=== PATIENT | male | born 1970 | race Caucasian/White ===

== ENCOUNTER 2019-07-16 06:23 | Emergency (ER) | payer OTHER ==
[~2019-07-16] VITALS: Ht 182.9 cm; Wt 110.1 kg
--- NOTE | 2019-07-16 06:58 | NUR ---
Note rashaun in EDM - 07/16/19 at 0813 by AVTAR RECEIVED REPORT FROM VANITA. PT SITTING UP ON Outline App AWAKE & CALM, RESPONDS APPROP TO STAFF, NAD- ABLE TO CONVERSE W/O DISTRESS, COMFORT MEASURES PROVIDED, CALL LIGHT WITHIN REACH.
--- NOTE | 2019-07-16 06:58 | NUR ---
RECEIVED REPORT FROM VANITA. PT SITTING UP ON GURNEY AWAKE & CALM, RESPONDS APPROP TO STAFF, NAD- ABLE TO CONVERSE W/O DISTRESS, COMFORT MEASURES PROVIDED, CALL LIGHT WITHIN REACH.
[2019-07-16] MEDS ORDERED: SODIUM CHLORIDE FLUSH 10ML SYR IVF ONE (07:00)
[2019-07-16] MEDS ORDERED: CLINDAMYCIN PMX 600MG/50ML 50 ML IV ONE (07:00)
[2019-07-16] MEDS ORDERED: CLINDAMYCIN PMX 600MG/50ML 50 ML ONE (07:10)
[2019-07-16 07:26] LABS: BASOPHILS # (AUTO) 0.03 x10^3/uL (0-0.1); BASOPHILS % (AUTO) 0 % (0-1); EOSINOPHILS # (AUTO) 0.03 x10^3/uL (0-0.4); EOSINOPHILS % (AUTO) 0 % (1-7); LYMPHOCYTES # (AUTO) 2.04 x10^3/uL (1-3.4); LYMPHOCYTES % (AUTO) 22 % (22-44); MD NO; MEAN CORPUSCULAR HEMOGLOBIN 29.3 pg (27.5-34.5); MEAN CORPUSCULAR HGB CONC 33.7 g/dL (33.2-36.2); MEAN CORPUSCULAR VOLUME 86.9 fL (81-97); MEAN PLATELET VOLUME 7.1 fL (7.4-10.4); MONOCYTES # (AUTO) 0.91 x10^3/uL (0.2-0.8); MONOCYTES % (AUTO) 10 % (2-9); NEUTROPHILS # (AUTO) 6.24 x10^3/uL (1.8-6.8); NEUTROPHILS % (AUTO) 68 % (42-75); PLATELET COUNT 224 x10^3/uL (130-400); RED CELL DISTRIBUTION WIDTH 12.7 % (9.4-14.8)
[2019-07-16 07:28] LABS: ANION GAP 7 mmol/L (5-15); CALCIUM 9.5 mg/dL (8.5-10.1); CHLORIDE 104 mmol/L (98-107)
[2019-07-16 07:29] LABS: CREATININE 1.14 mg/dL (0.7-1.3)
--- NOTE | 2019-07-16 08:00 | NUR ---
PT REMAINS IN XR.
--- NOTE | 2019-07-16 08:01 | NUR ---
Catalina rodney in EDM - 07/16/19 at 0813 by AVTAR PT UPRIGHT ON GURNEY AWAKE & COMFORTABLE, RESPONDS APPROP TO STAFF, NAD, COMFORT MEASURES PROVIDED, FAMILY AT BS, CALL LIGHT WITHIN REACH.
--- NOTE | 2019-07-16 08:14 | NUR ---
PT RETURNED FROM XR, UPRIGHT ON GURNEY AWAKE & COMFORTABLE, RESPONDS APPROP TO STAFF, NAD, COMFORT MEASURES PROVIDED, CALL LIGHT WITHIN REACH.
[2019-07-16] MEDS ORDERED: DEXAMETHASONE 4 MG TABLET PO ONE (09:00)
[2019-07-16] MEDS ORDERED: DEXAMETHASONE 4 MG TABLET ONE (09:01)
[2019-07-16 09:27] VITALS: BP 145/95
[2019-07-16] MEDS ORDERED: OMNIPAQUE 350 MG/ML, 75ML BOTTLE ONE (10:09)
== END 2019-07-16 09:29 | disposition home or self-care (01) ==
LOC: ED 09:20
DX: K04.7 Periapical abscess without sinus (principal); J34.1 Cyst and mucocele of nose and nasal sinus; K02.9 Dental caries, unspecified
CPT/HCPCS: 36415; 70487; 80048; 82040; 85025; 93005; 96365; 99284; Q9967